=== PATIENT | male | born 1980 | race Two or more races ===

== ENCOUNTER 2018-05-11 19:46 | Emergency (ER) | payer MEDICAID ==
[~2018-05-11] VITALS: Ht 185.4 cm; Wt 113.4 kg
[~2018-05-11 19:46] MED LIST: HYDR-548 PO
--- NOTE | 2018-05-11 20:09 | NUR ---
DR BETHEL ROBERT MD AT BEDSIDE FOR MSE.
--- NOTE | 2018-05-11 20:31 | NUR ---
Patient discharged to home in stable conditon. Written and verbal after care instructions given. Patient verbalizes understanding of instructions. Pt ambulatory w/ steady gait. No distress noted. Pt took all personal belongings. Pt accompanied by significant other.
[2018-05-11 20:33] VITALS: BP 115/87
== END 2018-05-11 20:34 | disposition home or self-care (01) ==
LOC: ER 19:48
DX: M79.1 Myalgia (principal); E78.00 Pure hypercholesterolemia, unspecified; F17.200 Nicotine dependence, unspecified, uncomplicated; F11.10 Opioid abuse, uncomplicated; Z79.891 Long term (current) use of opiate analgesic
CPT/HCPCS: A4663

== ENCOUNTER 2021-03-16 09:13 | Emergency (ER) | payer OTHER ==
[~2021-03-16] VITALS: Ht 185.4 cm; Wt 124.7 kg
[~2021-03-16 09:13] MED LIST changes: +HYDR-4354 PO; -HYDR-548 PO
--- NOTE | 2021-03-16 09:28 | NUR ---
[email or web address], medical screening exam in progress
[2021-03-16] MEDS ORDERED: ONDANSETRON 4 MG/2 ML VIAL ONE ×2 (09:45→10:02)
[2021-03-16] MEDS ORDERED: IV NORMAL SALINE 1000 ML BAG IV ONE (09:45)
[2021-03-16] MEDS ORDERED: ONDANSETRON 4 MG/2 ML VIAL IV ONE ×2 (09:45→10:00)
--- NOTE | 2021-03-16 10:00 | NUR ---
back from CT. pt IV RAC G20 was pulled out accidentally during transfer from [facility] to [place]. RAC was wrapped in cobain by cotton acreage measurer. pt still diaphoretic and stating right lower quadrant pain that comes in waves. re-inserted IV to LAC G20, saline lock. monitored accordingly.
[2021-03-16 10:02] LABS: CREATININE 1.4 mg/dL (0.6-1.3); POTASSIUM 3.9 mmol/L (3.5-5.1)
[2021-03-16 10:04] LABS: BASOPHILS % (AUTO) 0.4 % (0.0-2.0); EOSINOPHILS # (AUTO) 0.3 K/uL (0.0-0.7); MONOCYTES # (AUTO) 0.6 K/uL (2.0-10.0); MONOCYTES % (AUTO) 5.2 % (0.0-11.0); WHITE BLOOD COUNT (AUTO) 11.1 K/uL (3.6-10.2)
[2021-03-16 10:06] LABS: ACETAMINOPHEN < 2.0 ug/mL (10-30)
[2021-03-16 10:08] LABS: BILIRUBIN,DIRECT 0.1 mg/dL (0.0-0.2); BILIRUBIN,TOTAL 0.2 mg/dL (0.2-1.0); TOTAL PROTEIN, SERUM 9.3 g/dL (6.4-8.2)
[2021-03-16 10:09] LABS: ETHANOL < 3 MG/DL (0-0)
[2021-03-16 10:16] LABS: HEMATOCRIT 49.1 % (36.7-47.1); HEMOGLOBIN 16.7 g/dL (12.5-16.3); LYMPHOCYTES # (AUTO) 3.6 K/uL (20.0-40.0); LYMPHOCYTES % (AUTO) 32.1 % (20.5-51.5); MEAN CORPUSCULAR HEMOGLOBIN 28.7 uug (23.8-33.4); MEAN CORPUSCULAR HGB CONC 34 g/dL (32.5-36.3); MEAN CORPUSCULAR VOLUME 84.1 fL (73.0-96.2); NEUTROPHILS # (AUTO) 6.6 K/uL (1.8-8.9); NEUTROPHILS % (AUTO) 59.3 % (38.5-71.5); RED BLOOD CELL COUNT(AUTO) 5.83 MIL/uL (4.06-5.63)
[2021-03-16 10:21] LABS: PLATELET COUNT (AUTO) 450 K/uL (152-348)
[2021-03-16] MEDS ORDERED: KETOROLAC TROMETHAMINE 30 MG INJ ONE (10:59)
[2021-03-16] MEDS ORDERED: LORAZEPAM 2 MG/1 ML VIAL IV ONE (11:00)
[2021-03-16] MEDS ORDERED: KETAMINE HCL 500 MG/10 ML INJ IV ONE (11:00)
[2021-03-16] MEDS ORDERED: KETOROLAC TROMETHAMINE 30 MG INJ IVP ONE (11:00)
[2021-03-16] MEDS: IV LACTATED RINGERS SOLUTION 1,000 ML IV PRN ×2 (11:12→17:45)
[2021-03-16] MEDS ORDERED: KETAMINE HCL 500 MG/10 ML INJ ONE (11:16)
[2021-03-16] MEDS ORDERED: LORAZEPAM 2 MG/1 ML VIAL ONE (11:17)
--- NOTE | 2021-03-16 11:36 | NUR ---
Pt sleeping and comfortable after IV Ativan. with IVF running to LAC G20 intact. monitored accordingly srx2 up, bed at lowest position
[2021-03-16 12:59] LABS: CREATININE 1.3 mg/dL (0.6-1.3); POTASSIUM 5.1 mmol/L (3.5-5.1)
[2021-03-16 13:56] LABS: *BILIRUBIN,URIN NEGATIVE (NEGATIVE); *BLOOD, URINE 2+ (NEGATIVE); *CLARITY,URINE CLEAR (CLEAR); *COLOR,URINE YELLOW (YELLOW); *KETONES,URINE NEGATIVE (NEGATIVE); *UROBILINOGEN,URINE 0.2 E.U./dl (NORMAL); LEUKOCYTE ESTERASE ,URINE NEGATIVE (NEGATIVE); NITRITE, URINE NEGATIVE (NEGATIVE); UGLUCOSE NEGATIVE (NEGATIVE)
[2021-03-16] MEDS ORDERED: METOCLOPRAMIDE HCL 10 MG/2 ML VIAL IV ONE (14:00)
[2021-03-16] MEDS ORDERED: diphenhydrAMINE 50 MG/1 ML VIAL ONE (14:00)
[2021-03-16] MEDS ORDERED: METOCLOPRAMIDE HCL 10 MG/2 ML VIAL ONE (14:00)
[2021-03-16] MEDS ORDERED: diphenhydrAMINE 50 MG/1 ML VIAL IV ONE (14:00)
[2021-03-16 14:06] LABS: *AMPHETAMINE, URINE NEGATIVE (NEGATIVE); *CANNABINOID, URINE POSITIVE (NEGATIVE); *COCCAINE, URINE POSITIVE (NEGATIVE); *OPIATE, URINE POSITIVE (NEGATIVE); *PHENCYCLIDINE SCREEN,URINE NEGATIVE (NEGATIVE)
[2021-03-16 14:14] LABS: MUCUS,URINE MODERATE /LPF (0-FEW)
[2021-03-16 14:15] LABS: WBC,URINE 0-3 /HPF (0-3)
[2021-03-16 14:17] LABS: BACTERIA,URINE NONE SEEN /HPF (NONE SEEN)
[2021-03-16 14:18] LABS: SQUAMOUS EPITHELIAL CELL,UR FEW /HPF (NONE SEEN)
--- NOTE | 2021-03-16 14:34 | NUR ---
Pt mother at bedside. ERMD at bedside for update. Pt recommended for admission, insurance ok with admission to [facility] Banjo Repair Person (Shayy) : [phone] fax: [phone] Left VM : pending bed availability
[2021-03-16] MEDS ORDERED: PIPERACILLIN SODIUM/TAZOBACTAM 3.375 G in IV DEXTROSE 5% 50 ML IV ONE (15:30)
[2021-03-16] MEDS ORDERED: PIPERACILLIN/TAZOBACTAM/D5W 50 ML IV ONE (15:45)
--- NOTE | 2021-03-16 17:00 | NUR ---
Report given to Cintia RN: Pt to transfer to [facility] per Insurance preference. Dx: Lactic acidosis , intractable nausea and vomiting Receiving MD: Dr. Jack Pt ok to transfer to Bed A, Room 306. ETA of poultry picker: 30mins
--- NOTE | 2021-03-16 17:33 | NUR ---
Patient Tranfers to outside Facility accompanied by BLS ([place]) at this time with all pt belongings, with L AC G20 saline lock intact. NAD vSS RA. pt reports 2/10 pain and is comfortable at this time. ambulatory with stable gait. Physician: Dr. Jack Location:[facility]
== END 2021-03-16 17:52 | disposition short-term general hospital (02) ==
LOC: ER 09:13
DX: N13.2 Hydronephrosis with renal and ureteral calculous obstruction (principal); E87.2 Acidosis; R11.2 Nausea with vomiting, unspecified; Z82.49 Family history of ischemic heart disease and other diseases of the circulatory system; F11.10 Opioid abuse, uncomplicated; K40.20 Bilateral inguinal hernia, without obstruction or gangrene, not specified as recurrent; Z20.822 Contact with and (suspected) exposure to COVID-19
CPT/HCPCS: 36415; 71045; 74176; 80048 ×2; 80076; 80299; 80307; 80320; 81001; 82550; 83605 ×2; 83690; 85025; 85730; 87086; 87426; 93005; 96361; 96365; 96374; 96375; 99285; J1200; J1885; J2060; J2405 ×2; J2543; J2765; J3490; J7120; A4663; G0480; J7030

== ENCOUNTER 2022-08-28 21:37 | Emergency (ER) | payer MEDICAID ==
[~2022-08-28] VITALS: Ht 185.4 cm; Wt 117.9 kg
--- NOTE | 2022-08-28 22:00 | NUR ---
Dr. Long at bedside. MSE in progress.
[2022-08-28] MEDS ORDERED: SWABABLE VALVE TRANSFER SET EA MC ONE (22:14)
[2022-08-28] MEDS ORDERED: IV NORMAL SALINE 250 ML IV ONE (22:14)
[2022-08-28] MEDS ORDERED: IOHEXOL 300MG/ML 100 ML INFUS..BTL ONE (22:14)
[2022-08-28] MEDS ORDERED: PROCHLORPERAZINE EDISYLATE 10 MG/2 ML VIAL IV ONE (22:15)
[2022-08-28] MEDS ORDERED: IV NORMAL SALINE 1000 ML BAG IV ONE (22:15)
[2022-08-28] MEDS ORDERED: HYDROMORPHONE 1 MG/1 ML DISP.SYRIN IV ONE ×2 (22:15→23:00)
[2022-08-28] MEDS ORDERED: PROCHLORPERAZINE EDISYLATE 10 MG/2 ML VIAL ONE (22:21)
[2022-08-28] MEDS ORDERED: HYDROMORPHONE 2 MG/1 ML DISP.SYRIN ONE (22:21)
[2022-08-28 22:25] LABS: HEMATOCRIT 39.6 % (36.7-47.1); MEAN CORPUSCULAR HEMOGLOBIN 28.3 uug (23.8-33.4); MEAN CORPUSCULAR VOLUME 82.4 fL (73.0-96.2); PLATELET COUNT (AUTO) 381 K/uL (152-348)
[2022-08-28 22:36] LABS: CARBON DIOXIDE 28 mmol/L (21-32); CHLORIDE 100 mmol/L (98-107); CREATININE 1.3 mg/dL (0.6-1.3); GLUCOSE 92 mg/dL (74-106); POTASSIUM 3.6 mmol/L (3.5-5.1); UREA NITROGEN, BLOOD 16 mg/dL (7-18)
[2022-08-28 22:45] LABS: ALANINE AMINOTRANSFERASE 37 U/L (16-63); ALKALINE PHOSPHATASE 76 U/L (50-136); ASPARTATE AMINOTRANSFERASE 8 U/L (15-37); BILIRUBIN,DIRECT 0.1 mg/dL (0.0-0.2); BILIRUBIN,TOTAL 0.6 mg/dL (0.2-1.0); LIPASE 81 U/L (73-393); TOTAL PROTEIN, SERUM 7.8 g/dL (6.4-8.2)
[2022-08-28] MEDS ORDERED: HYDROMORPHONE 1 MG/1 ML DISP.SYRIN ONE (22:57)
--- NOTE | 2022-08-28 23:00 | NUR ---
Patient taken down for CT scan.
--- NOTE | 2022-08-28 23:17 | NUR ---
Patient back from CT.
[2022-08-29] MEDS ORDERED: IV NS 1000 ML 1,000 ML IV ONE (01:15)
[2022-08-29] MEDS ORDERED: OXYC-128 PO (01:30)
[2022-08-29] MEDS ORDERED: PROC10TA29 PO (01:30)
--- NOTE | 2022-08-29 02:07 | NUR ---
Patient discharged to home in stable condition. A/O x4. NAD noted. Ambulatory with steady gait. All belongins with patient. Written and verbal after care instructions given. Patient verbalizes understanding of instructions. Stressed follow up or return to ER for worsening s/s.
[2022-08-29 02:18] VITALS: BP 117/76
== END 2022-08-29 02:07 | disposition home or self-care (01) ==
LOC: ER 21:37
DX: R10.10 Upper abdominal pain, unspecified (principal); R11.2 Nausea with vomiting, unspecified; R94.31 Abnormal electrocardiogram [ECG] [EKG]; R00.0 Tachycardia, unspecified; E11.43 Type 2 diabetes mellitus with diabetic autonomic (poly)neuropathy; K31.84 Gastroparesis; Z87.442 Personal history of urinary calculi; Z82.49 Family history of ischemic heart disease and other diseases of the circulatory system
CPT/HCPCS: 99285; 74177; 96374; 76705; 96361 ×2; 96375; 80076; 80048; 83690; 85025; 84484; 93005; 96376; 83605; Q9967; J0780; J1170 ×2; J7040 ×2; 36415

== ENCOUNTER 2024-12-21 16:55 | Emergency (ER) | payer MEDICAID, OTHER ==
[~2024-12-21] VITALS: Ht 182.9 cm; Wt 96.2 kg
[~2024-12-21 16:55] MED LIST changes: +OXYC-128 PO; +PROC10TA29 PO
[2024-12-21] MEDS ORDERED: KETO10TA2 PO (19:51)
[2024-12-21] MEDS ORDERED: KETOROLAC TROMETHAMINE 30 MG INJ ONE (19:53)
[2024-12-21] MEDS: KETOROLAC TROMETHAMINE 30 MG INJ IM ONE (19:56)
[2024-12-21 20:13] VITALS: BP 145/77; TEMP 98; O2SAT 100
[2024-12-23] MEDS ORDERED: KETO10TA2 PO (13:24)
== END 2024-12-21 20:13 | disposition home or self-care (01) ==
LOC: ER 16:56
DX: S92.511A Displaced fracture of proximal phalanx of right lesser toe(s), initial encounter for closed fracture (principal); E78.00 Pure hypercholesterolemia, unspecified; F14.10 Cocaine abuse, uncomplicated; F32.A Depression, unspecified; F41.9 Anxiety disorder, unspecified; Z87.09 Personal history of other diseases of the respiratory system; Z87.39 Personal history of other diseases of the musculoskeletal system and connective tissue; W01.0XXA Fall on same level from slipping, tripping and stumbling without subsequent striking against object, initial encounter; Y93.89 Activity, other specified; Y92.89 Other specified places as the place of occurrence of the external cause; Y99.8 Other external cause status
CPT/HCPCS: 99283; 73630; 96372; J1885; A4606; A4663